=== PATIENT | female | born 1975 | race Caucasian/White ===

== ENCOUNTER 2018-01-08 15:59 | Outpatient (REF) | payer MEDICAID, SELFPAY ==
--- NOTE | 2018-01-08 14:30 | PAPFT_PTH ---
PATIENT: Saba Mahoney LOC: [facility] U#:[id number] AGE/SX: 42/F ROOM: RE01/08/[address]: Keysha Collazo : 1975 BED: DIS: 01/08/2018 SPEC #: [id number] RECD: 01/09/18 13:02 STATUS: TE RERonen #: [id number] SANTOS: 01/08/18 14:[address]: Keysha Collazo DEPT: [facility] Cytology RECD BY: Anitha Dietz Tissues: 1 - CX/ENDOCX FOR PAP SMEARS Procedures: PAP THIN PREP/[facility] Screening HPV DNA PROBE Comments: [id number]
== END 2018-01-08 16:19 ==
LOC: NCHCN 15:59
PROVIDERS: PCP Registered Nurse; Visit Provider Registered Nurse
DX: Z12.4 Encounter for screening for malignant neoplasm of cervix (principal); Z11.51 Encounter for screening for human papillomavirus (HPV)
CPT/HCPCS: 88142; 87624

== ENCOUNTER 2018-04-09 22:19 | Outpatient (REF) | payer MEDICAID, SELFPAY ==
[2018-04-09 22:50] LABS: Anion Gap 11.6 mmol/L (3-11); BUN 11 mg/dL (7-18); CO2 30.4 mmol/L (21.0-32.0); CREATININE 1.31 mg/dL (0.55-1.02); Calcium 9.6 mg/dL (8.5-10.1); Chloride 94 mmol/L (98-107); Estimated GFR 44.31 (mL/min/1.73m2); Glucose 186 mg/dL (70-100); Potassium 3.6 mmol/L (3.5-5.1); Sodium 136 mmol/L (136-145)
== END 2018-04-09 22:39 ==
LOC: NCHCN 22:19
PROVIDERS: PCP Registered Nurse; Visit Provider Registered Nurse
DX: N18.3 Chronic kidney disease, stage 3 (moderate) (principal); I10 Essential (primary) hypertension; E11.9 Type 2 diabetes mellitus without complications
CPT/HCPCS: 80048

== ENCOUNTER 2018-07-09 20:57 | Outpatient (REF) | payer MEDICAID, SELFPAY ==
[2018-07-09 21:07] LABS: ALT 55 U/L (12-78); AST 29 U/L (15-37); Albumin 4.3 g/dL (3.4-5.0); Alkaline Phosphatase 123 U/L (46-116); Bilirubin, Direct 0.07 mg/dL (0.00-0.20); Bilirubin, Total 0.3 mg/dL (0.2-1.0); Total Protein 7.7 g/dL (6.4-8.2)
== END 2018-07-09 21:17 ==
LOC: NCHCN 20:57
PROVIDERS: PCP Registered Nurse; Visit Provider Registered Nurse
DX: R74.8 Abnormal levels of other serum enzymes (principal)
CPT/HCPCS: 80076

== ENCOUNTER 2018-10-08 14:20 | Outpatient (REF) | payer MEDICAID, SELFPAY ==
[2018-10-08 20:54] LABS: Alkaline Phosphatase 120 U/L (46-116); Anion Gap 11.1 mmol/L (3-11); BUN 11 mg/dL (7-18); CO2 26.9 mmol/L (21.0-32.0); CREATININE 1.17 mg/dL (0.55-1.02); Calcium 9.4 mg/dL (8.5-10.1); Chloride 97 mmol/L (98-107); Estimated GFR 50.48 (mL/min/1.73m2); GGT 68 U/L (5-55); Glucose 117 mg/dL (70-100); Sodium 135 mmol/L (136-145)
== END 2018-10-08 14:40 ==
LOC: NCHCN 14:20
PROVIDERS: PCP Registered Nurse; Visit Provider Registered Nurse
DX: N18.3 Chronic kidney disease, stage 3 (moderate) (principal)
CPT/HCPCS: 80048; 82977; 84075

== ENCOUNTER 2018-10-23 10:26 | Outpatient (REF) | payer MEDICAID, SELFPAY ==
[2018-10-23 21:27] LABS: Anion Gap 13.3 mmol/L (3-11); BUN 10 mg/dL (7-18); CO2 26.7 mmol/L (21.0-32.0); Calcium 10.3 mg/dL (8.5-10.1); Chloride 99 mmol/L (98-107); Estimated GFR 49.03 (mL/min/1.73m2); Glucose 150 mg/dL (70-100); Potassium 4.1 mmol/L (3.5-5.1); Sodium 139 mmol/L (136-145)
== END 2018-10-23 10:46 ==
LOC: NCHCN 10:26
PROVIDERS: PCP Registered Nurse; Visit Provider Registered Nurse
DX: E87.1 Hypo-osmolality and hyponatremia (principal)
CPT/HCPCS: 80048

== ENCOUNTER 2019-01-21 17:00 | Outpatient (REF) | payer MEDICAID, SELFPAY ==
[2019-01-21 22:23] LABS: COMMENT (LAB VIEW ONLY) 56.39 mg/dL; Microalb ug/mg Crea 13.1 ug/mg Cr
== END 2019-01-21 17:20 ==
LOC: NCHCN 17:00
PROVIDERS: PCP Registered Nurse; Visit Provider Registered Nurse
DX: E11.9 Type 2 diabetes mellitus without complications (principal)
CPT/HCPCS: 82043; 82570

== ENCOUNTER 2019-07-22 10:07 | Outpatient (REF) | payer MEDICAID, SELFPAY ==
[2019-07-22 20:39] LABS: BUN 14 mg/dL (7-18); CREATININE 1.31 mg/dL (0.55-1.02); Calcium 10.1 mg/dL (8.5-10.1); Chloride 99 mmol/L (98-107); Estimated GFR 44.11 (mL/min/1.73m2); Glucose 179 mg/dL (74-106); Potassium 3.8 mmol/L (3.5-5.1); Sodium 137 mmol/L (136-145)
== END 2019-07-22 10:27 ==
LOC: NCHCN 10:07
PROVIDERS: PCP Registered Nurse; Visit Provider Registered Nurse
DX: I10 Essential (primary) hypertension (principal)
CPT/HCPCS: 80048

== ENCOUNTER 2019-11-18 10:00 | Outpatient (CLI) | payer MEDICAID, SELFPAY ==
--- NOTE | 2019-11-18 09:30 | DI.RAD_ITS ---
EXAM: XR KNEE RT 4V AP,LAT,GIDEON,PAT CLINICAL HISTORY: right knee pain. TECHNIQUE: 2D digital imaging was performed. COMPARISON: No exams were available for comparison FINDINGS: BONES: No acute fracture is present. No bony destructive lesion is seen. Small enthesophyte at the in ferior patella. JOINTS: The knee is normally aligned. Small effusion. Marginal osteophytes seen at the posterior pat slade. Joint space narrowing in the medial femoral tibial joint. SOFT TISSUE: Normal. IMPRESSION: Mild degenerative changes of the right knee. DATA REPOSITORY: RADIATION DOSE DELIVERED:
== END 2019-11-18 10:20 ==
PROVIDERS: PCP Registered Nurse; Referring Provider Registered Nurse; Visit Provider Student in an Organized Health Care Education/Training Program
DX: M25.561 Pain in right knee (principal)
CPT/HCPCS: 73564

== ENCOUNTER 2020-01-30 17:58 | Outpatient (REF) | payer MEDICAID, SELFPAY ==
[2020-01-30 20:45] LABS: Anion Gap 12.9 mmol/L (3-11); BUN 9 mg/dL (7-18); CO2 26.1 mmol/L (21.0-32.0); CREATININE 1.02 mg/dL (0.55-1.02); Calcium 9.8 mg/dL (8.5-10.1); Chloride 95 mmol/L (98-107); Glucose 203 mg/dL (74-106); Potassium 3.6 mmol/L (3.5-5.1); Sodium 134 mmol/L (136-145)
== END 2020-01-30 18:18 ==
LOC: NCHCN 17:58
PROVIDERS: PCP Registered Nurse; Visit Provider Registered Nurse
DX: N18.30 Chronic kidney disease, stage 3 unspecified (principal)
CPT/HCPCS: 80048

== ENCOUNTER 2020-10-28 14:08 | Outpatient (REF) | payer MEDICAID, SELFPAY ==
[2020-10-28 22:12] LABS: COMMENT (LAB VIEW ONLY) 191.69 mg/dL; Microalb ug/mg Crea 179.6 ug/mg Cr
== END 2020-10-28 14:09 | disposition home or self-care (01) ==
LOC: NCHCN 14:08
PROVIDERS: PCP Registered Nurse; Visit Provider Registered Nurse
DX: E11.9 Type 2 diabetes mellitus without complications (principal)
CPT/HCPCS: 82043; 82570

== ENCOUNTER 2020-11-11 08:29 | Outpatient (REF) | payer MEDICAID, SELFPAY ==
[2020-11-11 21:29] LABS: BUN 13 mg/dL (7-18); CREATININE 1.1 mg/dL (0.55-1.02); Calcium 10.2 mg/dL (8.5-10.1); Chloride 99 mmol/L (98-107); Estimated GFR 53.71 (mL/min/1.73m2); Glucose 127 mg/dL (74-106); Potassium 4.1 mmol/L (3.5-5.1); Sodium 137 mmol/L (136-145)
== END 2020-11-11 08:30 | disposition home or self-care (01) ==
LOC: NCHCN 08:29
PROVIDERS: PCP Registered Nurse; Visit Provider Registered Nurse
DX: R80.9 Proteinuria, unspecified (principal)
CPT/HCPCS: 80048

== ENCOUNTER 2021-05-12 15:49 | Outpatient (REF) | payer MEDICAID, SELFPAY ==
[2021-05-14 16:40] LABS: COVID-19 RT-PCR UVMMC Result Negative (Negative)
== END 2021-05-12 15:50 | disposition home or self-care (01) ==
LOC: NCHCN 15:49
PROVIDERS: PCP Registered Nurse; Visit Provider Registered Nurse
DX: Z20.822 Contact with and (suspected) exposure to COVID-19 (principal); R05.8 Other specified cough
CPT/HCPCS: U0003

== ENCOUNTER 2022-01-19 18:23 | Outpatient (REF) | payer MEDICAID, SELFPAY ==
[2022-01-19 21:15] LABS: HCT 44.5 % (36.0-46.0); HGB 14.9 g/dL (11.2-15.7); MCH 31.5 pg (27.0-33.0); MCHC 33.5 % (32.0-36.0); MCV 94 fL (80-95); MPV 10.7 fL (8.0-11.0); Platelet Count 319 10^3/uL (130-400); RBC 4.73 10^6/uL (3.93-5.22); RDW 13.7 % (11.7-14.6); RDW-SD 47.7 fL; WBC 16.88 10^3/uL (4.4-10.8)
[2022-01-19 21:32] LABS: ALT 31 U/L (14-59); AST 21 U/L (15-37); Albumin 4.3 g/dL (3.4-5.0); Alkaline Phosphatase 115 U/L (46-116); Anion Gap 9.5 mmol/L (3-11); BUN 14 mg/dL (7-18); Bilirubin, Total 0.2 mg/dL (0.2-1.0); CO2 27.5 mmol/L (21.0-32.0); CREATININE 1.1 mg/dL (0.55-1.02); Calcium 10.1 mg/dL (8.5-10.1); Chloride 98 mmol/L (98-107); Estimated GFR 62.76 (mL/min/1.73m2); Glucose 127 mg/dL (74-106); Potassium 4.6 mmol/L (3.5-5.1); Sodium 135 mmol/L (136-145); TSH 0.57 uIU/mL (0.36-3.74); Total Protein 8.4 g/dL (6.4-8.2)
[2022-01-20 20:18] LABS: Albumin ug/mg Crea 923 (<30); Creatinine, Ur 27.1 mg/dL (See Note)
== END 2022-01-19 18:24 | disposition home or self-care (01) ==
LOC: NCHCN 18:23
PROVIDERS: PCP Registered Nurse; Visit Provider Registered Nurse
DX: E11.9 Type 2 diabetes mellitus without complications (principal); I10 Essential (primary) hypertension; Z13.29 Encounter for screening for other suspected endocrine disorder; Z00.00 Encounter for general adult medical examination without abnormal findings
CPT/HCPCS: 80053; 85027; 82043; 82570; 84443

== ENCOUNTER 2022-01-31 15:45 | Outpatient (REF) | payer MEDICAID, SELFPAY ==
[2022-01-31 20:55] LABS: Abs Immature Grans 0.04 10^3/uL (0.0-0.06); Absolute Basophil Count 0.05 10^3/uL (0.0-0.2); Absolute Eosinophil Count 0.05 10^3/uL (0.0-0.7); Absolute Lymphocyte Count 3.28 10^3/uL (1.2-3.4); Absolute Monocyte Count 0.88 10^3/uL (0.1-0.8); Absolute Neutrophil Count 10.95 10^3/uL (1.2-6.7); Basophils % 0.3; Eosinophils % 0.3; HCT 42.8 % (36.0-46.0); HGB 14.8 g/dL (11.2-15.7); Immature Grans % 0.3; Lymphocytes % 21.5; MCH 31.7 pg (27.0-33.0); MCHC 34.6 % (32.0-36.0); MCV 92 fL (80-95); MPV 10.5 fL (8.0-11.0); Monocytes % 5.8; Neutrophils % 71.8; Platelet Count 264 10^3/uL (130-400); RBC 4.67 10^6/uL (3.93-5.22); RDW 13.9 % (11.7-14.6); RDW-SD 46.9 fL; WBC 15.25 10^3/uL (4.4-10.8)
== END 2022-01-31 15:46 | disposition home or self-care (01) ==
LOC: NCHCN 15:45
PROVIDERS: PCP Registered Nurse; Visit Provider Registered Nurse
DX: D72.829 Elevated white blood cell count, unspecified (principal)
CPT/HCPCS: 85025

== ENCOUNTER 2022-02-09 16:21 | Outpatient (REF) | payer MEDICAID, SELFPAY ==
[2022-02-09 15:22] LABS: Abs Immature Grans 0.05 10^3/uL (0.0-0.06); Absolute Basophil Count 0.06 10^3/uL (0.0-0.2); Absolute Eosinophil Count 0.21 10^3/uL (0.0-0.7); Basophils % 0.4; Eosinophils % 1.5; HCT 42.9 % (36.0-46.0); HGB 14.5 g/dL (11.2-15.7); Immature Grans % 0.4; Lymphocytes % 20.4; MCHC 33.8 % (32.0-36.0); MCV 95 fL (80-95); MPV 10.7 fL (8.0-11.0); Monocytes % 7.7; Neutrophils % 69.6; Platelet Count 317 10^3/uL (130-400); RBC 4.53 10^6/uL (3.93-5.22); RDW 14.5 % (11.7-14.6); RDW-SD 50.3 fL; WBC 14.23 10^3/uL (4.4-10.8)
== END 2022-02-09 16:22 | disposition home or self-care (01) ==
LOC: NCHCN 16:21
PROVIDERS: PCP Registered Nurse; Visit Provider Registered Nurse
DX: D72.828 Other elevated white blood cell count (principal)
CPT/HCPCS: 85025

== ENCOUNTER 2022-08-31 17:24 | Outpatient (REF) | payer MEDICAID, SELFPAY ==
[2022-08-31 22:10] LABS: Abs Immature Grans 0.03 10^3/uL (0.0-0.06); Absolute Basophil Count 0.05 10^3/uL (0.0-0.2); Absolute Lymphocyte Count 3.12 10^3/uL (1.2-3.4); Absolute Monocyte Count 0.72 10^3/uL (0.1-0.8); Absolute Neutrophil Count 7.56 10^3/uL (1.2-6.7); Basophils % 0.4; Eosinophils % 1.5; HCT 44.1 % (36.0-46.0); HGB 14.8 g/dL (11.2-15.7); Immature Grans % 0.3; Lymphocytes % 26.8; MCH 31.8 pg (27.0-33.0); MCHC 33.6 % (32.0-36.0); MCV 95 fL (80-95); MPV 10.7 fL (8.0-11.0); Monocytes % 6.2; Neutrophils % 64.8; Platelet Count 280 10^3/uL (130-400); RBC 4.65 10^6/uL (3.93-5.22); RDW 13.1 % (11.7-14.6); RDW-SD 45.9 fL; WBC 11.66 10^3/uL (4.4-10.8)
[2022-08-31 22:11] LABS: Absolute Eosinophil Count 0.17 10^3/uL (0.0-0.7)
== END 2022-08-31 17:25 | disposition home or self-care (01) ==
LOC: NCHCN 17:24
PROVIDERS: PCP Registered Nurse; Visit Provider Registered Nurse
DX: D72.828 Other elevated white blood cell count (principal); I10 Essential (primary) hypertension
CPT/HCPCS: 85025

== ENCOUNTER 2023-02-17 18:58 | Outpatient (REF) | payer MEDICAID, SELFPAY ==
--- NOTE | 2023-02-17 11:30 | PAPFT_PTH ---
PATIENT: Saba Mahoney LOC: [facility] U#:[id number] AGE/SX: 48/F ROOM: RE02/17/[address]: Nadia Hernandez : 1975 BED: DIS: 02/17/2023 SPEC #: [id number] RECD: 02/20/23 13:02 STATUS: TE RERonen #: [id number] SANTOS: 02/17/23 11:[address]: Nadia Hernandez DEPT: [facility] Cytology RECD BY: Anitha Dietz ENTERED: 02/20/23 13:03 SP TYPE: PAPFT OTHR DR: Keysha Collazo Tissues: 1 - CX/ENDOCX FOR PAP SMEARS Procedures: PAP THIN PREP/[facility] Screening HPV DNA PROBE Comments: [id number]
[2023-02-17 21:24] LABS: Hemoglobin A1C 6.5 % (<5.7)
[2023-02-17 21:27] LABS: Anion Gap 13.6 mmol/L (3-11); BUN 18 mg/dL (7-18); CO2 22.4 mmol/L (21.0-32.0); Calcium 10.1 mg/dL (8.5-10.1); Chloride 96 mmol/L (98-107); Estimated GFR 69.49 (mL/min/1.73m2); Glucose 126 mg/dL (74-106); Potassium 4.2 mmol/L (3.5-5.1); Sodium 132 mmol/L (136-145)
[2023-02-17 21:40] LABS: COMMENT (LAB VIEW ONLY) 39.16 mg/dL; Microalb ug/mg Crea 46.2 ug/mg Cr
== END 2023-02-17 18:59 | disposition home or self-care (01) ==
LOC: NCHCN 18:58
PROVIDERS: PCP Registered Nurse; Visit Provider Family Medicine
DX: Z01.419 Encounter for gynecological examination (general) (routine) without abnormal findings (principal); E11.9 Type 2 diabetes mellitus without complications; N18.31 Chronic kidney disease, stage 3a; I10 Essential (primary) hypertension
CPT/HCPCS: 80048; 88142; 82043; 82570; 83036; 87624

== ENCOUNTER 2023-05-18 17:03 | Outpatient (REF) | payer MEDICAID, SELFPAY ==
[2023-05-18 21:02] LABS: Anion Gap 15.3 mmol/L (3-11); BUN 12 mg/dL (7-18); CO2 22.7 mmol/L (21.0-32.0); Calcium 9.8 mg/dL (8.5-10.1); Chloride 99 mmol/L (98-107); Estimated GFR 69.49 (mL/min/1.73m2); Glucose 113 mg/dL (74-106); Potassium 3.7 mmol/L (3.5-5.1); Sodium 137 mmol/L (136-145)
[2023-05-18 21:05] LABS: Hemoglobin A1C 6.5 % (<5.7)
--- OUTSIDE RECORDS SUMMARY | 2023-05-19 13:26 | XMS_ITS | CCD ---
Author Name Unknown Address [address] [place] [address] [id number] Organization Unknown Address [address] [place] [address] [id number] Care Team Providers Care Plastics Engineer Name Role Phone MARIA LUISAKEMI TAVERAS Attending Physician [phone] Vital Signs Unknown or Not Available. Allergies Allergy Code Allergy Type Reaction Status No Known Allergies {Clinical monitoring unavailable} 0 Drug allergy Active Procedures Unknown or Not Available. History of Immunizations Immunization Code Date Tdap 115 09/21/2022 Problems Unknown or Not Available. Results Unknown or Not Available. Active Medications Medication Code Dose Units Frequency Route Modificatio n Start Date/Time Metoprolol Tartrate 50MG Oral Tablet 309409 1 TABLET TWICE A DAY BY MOUTH 10/25/2017 13:50 Prescription Detail TAKE 1 TABLET BY MOUTH TWICE A DAY Lisinopril/hydr oCHLOROthiazide 20MG-25MG Oral Tablet 671930 1 TABLET DAILY BY MOUTH 10/25/2017 13:49 Prescription Detail TAKE 1 TABLET BY MOUTH DAILY Lovastatin 20MG Oral Tablet 983017 1 TABLET BEDTIME BY MOUTH 10/25/2017 13:49 Prescription Detail TAKE 1 TABLET BY MOUTH BEDTIME Aspirin 81MG Oral Tablet, Enteric Coated 675608 81 MILLIGRAMS DAILY WITH FOOD BY MOUTH 10/25/2017 13:48 Prescription Detail TAKE 81 MILLIGRAMS BY MOUTH DAILY WITH F OOD metFORMIN HCl 500MG Oral Tablet 201483 500 MILLIGRAMS TWICE A DAY WITH FOOD BY MOUTH 10/25/2017 13:48 Prescription Detail TAKE 500 MILLIGRAMS BY MOUTH TWICE A DAY WITH FOOD Medications Administered During Visit Unknown or Not Available. Encounters Encounter Diagnosis Diagnosis Code Start Date Encounter for screening mamm ogram for malignant neoplasm of breast [id number] 04/03/2023 Social History Smoking Status Code Start Date End Date Current some day smoker [id number] Patient Decision Aids Unknown or Not Available. Discharge Instructions You were admitted to [facility] on 04/03/2023 10:29 with a principal diagnosis of Encounter for screening mammogram for malignant neoplasm of breast You were discharged from [facility] on 04/03/2023 10:29 Should you have any questions prior to discharge, please contact a member of your healthcare team. If you have left the hospital and have any questions, please contact your primary care physician. Chief Complaint and Reason For Visit Chief Complaint Date of Onset SCREENING Function Status Unknown or Not Available. Plan of Care Unknown or Not Available. Referral/Transition of Care Unknown or Not Available.
--- OUTSIDE RECORDS SUMMARY | 2023-05-19 13:26 | XMS_ITS | CCD ---
Author Name Unknown Address [address] [place] [address] [id number] Organization Unknown Address [address] [place] [address] [id number] Care Team Providers Care Inspector Handbag Frames Name Role Phone ALMA ALEJANDRO Attending Physician [phone] JOCELYNE MCKEON Er Physician 3 [phone] JULIA Christine Registered Nurse [phone] Vital Signs Vital Sign Value Unit Date/Time Recent/Initial ? BMI (Body Mass Index) 37.79 kg/m^2 09/21/2022 16: 01 Initial VS Weight Measured 200 lbs 09/21/2022 16:01 Ini tial VS Height 61 in 09/21/2022 16:01 Initial VS BSA (Body Surface Area) 1.98 m^2 09/21/2022 1 6:01 Initial VS BP Systolic 109 mmHg 09/21/2022 16:01 Initial VS BP Diastolic 72 mmHg 09/21/2022 16:01 Initia l VS Respiratory Rate 16 bpm 09/21/2022 16:01 In itial VS Heart Rate 70 bpm 09/21/2022 16:01 Initial VS O2 % BldC Oximetry 98 % 09/21/2022 16:01 Initial VS Body Temperature 35.6 degrees 09/21/2022 16:01 In itial VS Allergies Allergy Code Allergy Type Reaction Status No Known Allergies {Clinical monitoring unavailable} 0 Drug allergy Active Procedures Unknown or Not Available. History of Immunizations Immunization Code Date Tdap 115 09/21/2022 Problems Unknown or Not Available. Results Unknown or Not Available. Active Medications Medications Administered During Visit Medication Dose Units Frequency Route Date/Time of Last Dose TETANUS/DIPHT/PERTUS SYR:0.5ML(BOOSTRIX) 0.5 ML X1 IM 09/22/19 16:22 DERMABOND TOPICAL SKIN ADHES LISA (PEN) 1 TRAM X1 TOP 09/21/2022 16:2 2 Encounters Encounter Diagnosis Diagnosis Code Start Date Laceration without foreign b fany of left thumb without damage to nail, initial encounter [id number] 09/21/2022 Social History Smoking Status Code Start Date End Date Current some day smoker [id number] Patient Decision Aids Unknown or Not Available. Discharge Instructions You were admitted to [facility] on 09/21/2022 15:39 with a principal diagnosis of Laceration without foreign body of left thumb without damage to nail, initial encounter You were discharged from [facility] on 09/21/2022 16:53 Should you have any questions prior to discharge, please contact a member of your healthcare team. If you have left the hospital and have any questions, please contact your primary care physician. Chief Complaint and Reason For Visit Chief Complaint Date of Onset LAC ON LEFT THUMB Function Status Unknown or Not Available. Plan of Care Unknown or Not Available. Referral/Transition of Care Unknown or Not Available.
--- OUTSIDE RECORDS SUMMARY | 2023-05-19 13:26 | XMS_ITS | CCD ---
Author Name Unknown Address [address] [place] [address] [phone] Organization Unknown Address [address] [place] [address] [id number] Care Team Providers Care General Lithographic Worker Name Role Phone KELLY DASILVA Attending Physician [phone] Vital Signs Unknown or Not Available. Allergies [...] Start Date/Time Metoprolol Tartrate 50MG Oral Tablet 444937 1 TABLET TWICE A DAY BY MOUTH 10/25/2017 13:50 Prescription Detail TAKE 1 TABLET BY MOUTH TWICE A DAY Lisinopril/hydr oCHLOROthiazide 20MG-25MG Oral Tablet 376976 1 TABLET DAILY BY MOUTH 10/25/2017 13:49 Prescription Detail TAKE 1 TABLET BY MOUTH DAILY Lovastatin 20MG Oral Tablet 774833 1 TABLET BEDTIME BY MOUTH 10/25/2017 13:49 Prescription Detail TAKE 1 TABLET BY MOUTH BEDTIME Aspirin 81MG Oral Tablet, Enteric Coated 102591 81 MILLIGRAMS DAILY WITH FOOD BY MOUTH 10/25/2017 13:48 Prescription Detail TAKE 81 MILLIGRAMS BY MOUTH DAILY WITH F OOD metFORMIN HCl 500MG Oral Tablet 303321 500 MILLIGRAMS TWICE A DAY WITH FOOD BY MOUTH 10/25/2017 13:48 Prescription Detail TAKE 500 MILLIGRAMS BY MOUTH TWICE A DAY WITH FOOD Medications Administered During Visit Unknown or Not Available. Encounters Encounter Diagnosis Diagnosis Code Start Date Encounter for screening mamm ogram for malignant neoplasm of breast [id number] 11/30/2020 Social History Smoking Status Code Start Date End Date Current some day smoker [id number] Patient Decision Aids Unknown or Not Available. Discharge Instructions You were admitted to [facility] on 11/30/2020 12:47 with a principal diagnosis of Encounter for screening mammogram for malignant neoplasm of breast You were discharged from [facility] 01 on 11/30/2020 12:47 Should you have any questions prior to discharge, please contact a member of your healthcare team. If you have left the hospital and have any questions, please contact your primary care physician. Chief Complaint and Reason For Visit Unknown or Not Available. Function Status Unknown or Not Available. Plan of Care Unknown or Not Available. Referral/Transition of Care Unknown or Not Available.
== END 2023-05-18 17:04 | disposition home or self-care (01) ==
LOC: NCHCN 17:03
PROVIDERS: PCP Registered Nurse; Visit Provider Family Medicine
DX: E11.9 Type 2 diabetes mellitus without complications (principal); N18.30 Chronic kidney disease, stage 3 unspecified
CPT/HCPCS: 80048; 83036

== ENCOUNTER 2023-12-18 15:21 | Outpatient (REF) | payer MEDICAID, SELFPAY ==
[2023-12-18 22:18] LABS: COMMENT (LAB VIEW ONLY) 13.23 mg/dL; Microalb ug/mg Crea 77.1 ug/mg Cr
== END 2023-12-18 15:22 | disposition home or self-care (01) ==
LOC: NCHCN 15:21
PROVIDERS: PCP Registered Nurse; Visit Provider Family Medicine
DX: E11.9 Type 2 diabetes mellitus without complications (principal)
CPT/HCPCS: 82043; 82570

== ENCOUNTER 2024-03-18 18:08 | Outpatient (REF) | payer MEDICAID, SELFPAY ==
[2024-03-18 16:14] LABS: Anion Gap 9.9 mmol/L (3-11); BUN 16 mg/dL (7-18); CO2 28.1 mmol/L (21.0-32.0); CREATININE 1.1 mg/dL (0.55-1.02); Calcium 9.6 mg/dL (8.5-10.1); Chloride 102 mmol/L (98-107); Glucose 171 mg/dL (74-106); Potassium 4.4 mmol/L (3.5-5.1); Sodium 140 mmol/L (136-145)
[2024-03-18 17:37] LABS: Hemoglobin A1C 6.9 % (<5.7)
== END 2024-03-18 18:09 | disposition home or self-care (01) ==
LOC: NCHCN 18:08
PROVIDERS: PCP Registered Nurse; Visit Provider Family Medicine
DX: I10 Essential (primary) hypertension (principal); E11.9 Type 2 diabetes mellitus without complications
CPT/HCPCS: 80048; 83036

== ENCOUNTER 2024-12-11 14:47 | Outpatient (REF) | payer MEDICAID, SELFPAY ==
[2024-12-12 17:11] LABS: COMMENT (LAB VIEW ONLY) 56.93 mg/dL
[2024-12-12 17:26] LABS: Microalb ug/mg Crea 339.2 ug/mg Cr
== END 2024-12-11 14:48 | disposition home or self-care (01) ==
LOC: NCHCN 14:47
PROVIDERS: PCP Registered Nurse; Visit Provider Family Medicine
DX: E11.319 Type 2 diabetes mellitus with unspecified diabetic retinopathy without macular edema (principal)
CPT/HCPCS: 82043; 82570

== ENCOUNTER 2025-03-12 10:19 | Outpatient (REF) | payer MEDICAID, SELFPAY ==
[2025-03-12 16:04] LABS: Anion Gap 6.8 mmol/L (3-11); BUN 12 mg/dL (9-23); CO2 27.2 mmol/L (20.0-31.0); Calcium 9.4 mg/dL (8.3-10.6); Chloride 107 mmol/L (98-107); Glucose 126 mg/dL (74-106); Potassium 3.9 mmol/L (3.5-5.1); Sodium 141 mmol/L (136-145)
== END 2025-03-12 10:20 | disposition home or self-care (01) ==
LOC: NCHCN 10:19
PROVIDERS: PCP Registered Nurse; Visit Provider Family Medicine
DX: E11.9 Type 2 diabetes mellitus without complications (principal)
CPT/HCPCS: 80048